=== PATIENT | female | born 1980 | race Caucasian/White ===

== ENCOUNTER 2018-05-08 10:02 | Emergency (ER) | payer BC ==
--- NOTE | 2018-05-08 10:15 | UC ---
Throat Pain/Nasal Guero HPI - HPI Summary HPI Summary: 37 yo female presents with sore throat for the last 4 days. Has been taking ibuprofen with good relief. She is eating and drinking well. Denies fever, chills, cough, rash, abdominal pain, n/v. - History of Current Complaint Stated Complaint: SORE THROAT Time Seen by Provider: 05/08/18 10:08 Hx Obtained From: Patient Severity: Mild Pain Intensity: 3 Pain Scale Used: 0-10 Numeric - Allergies/Home Medications Allergies/Adverse Reactions: Allergies Allergy/AdvReac Type Severity Reaction Status Date / Time No Known Allergies Allergy Verified 05/08/18 10:13 Home Medications: Home Medications NK [No Home Medications Reported] 05/08/18 [History Confirmed 05/08/18] PMH/Surg Hx/FS Hx/Imm Hx - Additional Past Medical History Additional PMH: None - Surgical History Surgical History: None - Family History Known Family History: Positive: None - Social History Occupation: Employed Full-time Lives: With Family Alcohol Use: None Substance Use Type: None Smoking Status (MU): Never Smoked Tobacco Review of Systems Constitutional: Negative Skin: Negative Eyes: Negative ENT: Sore Throat Respiratory: Negative Cardiovascular: Negative Gastrointestinal: Negative Neurovascular: Negative Neurological: Negative Psychological: Negative All Other Systems Reviewed And Are Negative: Yes Physical Exam - Summary Physical Exam Summary: GENERAL: NAD. WDWN. No pain distress. SKIN: No rashes, sores, lesions, or open wounds. HEENT: Head: AT/NC Eyes: Conjunctiva clear without inflammation or discharge. Ears: Hearing grossly normal. TMs intact, no bulging, erythema, or edema. Nose: Nasal mucosa pink and moist. NTTP maxillary and frontal sinus. Throat: Posterior oropharynx without erythema or tonsillar enlargement. No exudates. Uvula midline. No hoarse voice or muffled voice. NECK: Supple. Nontender. No lymphadenopathy. CHEST: CTAB. No r/r/w. No accessory muscle use. Breathing comfortably and in no distress. CV: RRR. Without m/r/g. Pulses intact. Cap refill <2seconds NEURO: Alert. PSYCH: Age appropriate behavior. Triage Information Reviewed: Yes Vital Signs: Vital Signs: Temp Pulse Resp BP Pulse Ox 98.5 F 106 18 177/91 100 05/08/18 10:14 05/08/18 10:14 05/08/18 10:14 05/08/18 10:14 05/08/18 10:14 Laboratory Tests 05/08/18 10:29 Group A Strep Rapid Negative Vital Signs Reviewed: Yes Throat Pain/Nasal Course/Dx - Course Course Of Treatment: POC strep negative. Suspect viral pharyngitis. - Differential Dx/Diagnosis Provider Diagnoses: Viral pharyngitis Discharge - Sign-Out/Discharge Documenting (check all that apply): Patient Departure All imaging exams completed and their final reports reviewed: No Studies - Discharge Plan Condition: Stable Disposition: HOME Patient Education Materials: Pharyngitis (ED) Referrals: Nelli Sanchez [Primary Care Provider] - Additional Instructions: If you develop a fever, shortness of breath, chest pain, new or worsening symptoms - please call your PCP or go to the ED. Your blood pressure was high at todays visit. Please see your primary provider within 4 weeks for recheck and re-evaluation. - Billing Disposition and Condition Condition: STABLE Disposition: Home
[2018-05-08 10:21] VITALS: BP 177/91
== END 2018-05-08 10:40 | disposition home or self-care (01) ==
LOC: UCEAST 10:02
DX: J02.9 Acute pharyngitis, unspecified (principal)
CPT/HCPCS: 87651; 99211; G0463

== ENCOUNTER 2018-05-09 09:36 | Emergency (ER) | payer BC ==
--- NOTE | 2018-05-09 10:38 | ED ---
Respiratory - HPI Summary HPI Summary: This patient is a 37 year old F presenting to [facility] accompanied by her Will with a chief complaint of continually worsening sore and swollen throat since 05/04/18, with pain starting the , and the swelling sensation on 05/06. PMHx tonsillitis frequently (mostly as a child), but no tonsillectomy. Pt was at 05/07/18 and her strep test was negative then. She denies fever, wheeze, and denies having received a flu vaccine this year; I never have and I never will. The patient endorses hoarse, scratchy voice, like Id been yelling , worsening swelling, ears draining, and sore throat. BP in room 135/99. Pt declines having her ears cleaned of cerumen. PMHx heart murmur (when ). Denies chance that she is because her has had a vasectomy, LMP 05/02/18. Pt noted she has a relative who sees Dr. Mcdowell for ENT. - History of Current Complaint Chief Complaint: EDThroatPain Stated Complaint: SOB Time Seen by Provider: 05/09/18 10:09 Hx Obtained From: Patient, Family/Environmental Coordinator - Will Onset/Duration: Gradual Onset, Lasting Days, Still Present, Worse Since - continually Timing: Constant Initial Severity: Mild Current Severity: Moderate Pain Intensity: 5 Sputum Amount: None Aggravating Factor(s): Nothing Alleviating Factor(s): Nothing Associated Signs and Symptoms: Edema - of throat/tonsils, Hoarseness - Allergy/Home Medications Allergies/Adverse Reactions: Allergies Allergy/AdvReac Type Severity Reaction Status Date / Time No Known Allergies Allergy Verified 05/09/18 09:41 PMH/Surg Hx/FS Hx/Imm Hx Previously Healthy: No Endocrine/Hematology History: Denies: Hx Sickle Cell Disease Cardiovascular History: Reports: Hx Hypertension - no meds, Other Cardiovascular Problems/Disorders - murmur when Respiratory History: Denies: Hx Asthma Sensory History: Reports: Hx Contacts or Glasses Denies: Hx Legally Blind, Hx Deafness Opthamlomology History: Reports: Hx Contacts or Glasses Denies: Hx Legally Blind EENT History: Denies: Hx Deafness Psychiatric History: Denies: Hx Schizophrenia - Cancer History Hx Chemotherapy: No Hx Radiation Therapy: No - Surgical History Surgery Procedure, Year, and Place: none Infectious Disease History: No Infectious Disease History: Denies: History Other Infectious Disease, Traveled Outside the [place] in Last 30 Days - Family History Known Family History: Positive: Respiratory Disease - asthma Negative: Other - tonsilitis, POSITIVE: [place] - Social History Lives: With Family Alcohol Use: None Substance Use Type: Reports: None Smoking Status (MU): Never Smoked Tobacco Review of Systems Negative: Fever Positive: Sore Throat, Other - tonsils swollen, hoarse voice Cardiovascular: Negative Respiratory: Negative Negative: Other - wheeze Gastrointestinal: Negative Positive: no symptoms reported Skin: Negative Neurological: Negative Psychological: Normal All Other Systems Reviewed And Are Negative: Yes Physical Exam - Summary Physical Exam Summary: Appearance: Well-appearing, minimal pain distress, well-nourished Skin: Warm, color reflects adequate perfusion, dry Head: Normal Head/Face inspection, atraumatic Eyes: Conjunctiva clear ENT: TMs cerumen bilaterally, L TM partially visible is clear, no nasal discharge, mucosal membranes moist, tonsils enlarged but not to midline, tonsils not red, no tonsillar exudate, pharynx not red Neck: Supple, submandibular nodes palpable, no anterior or posterior cervical nodes, no JVD Respiratory: Lungs clear, normal breath sounds, no respiratory distress Cardio: RRR, No murmur, pulses normal, brisk capillary refill Abdomen: Soft, non-tender Bowel sounds: Present Musculoskeletal: Strength Intact/ROM intact, no calf tenderness, no edema. Psychological: Normal Neuro: Alert, muscle tone normal, no focal deficit Triage Information Reviewed: Yes Vital Signs On Initial Exam: Initial Vitals Temp Pulse Resp BP Pulse Ox 97.6 F 102 18 143/92 100 05/09/18 09:39 05/09/18 09:39 05/09/18 09:39 05/09/18 09:39 05/09/18 09:39 Vital Signs Reviewed: Yes Diagnostics - Vital Signs Vital Signs Temp Pulse Resp BP Pulse Ox 05/09/18 09:39 97.6 F 102 18 143/92 100 - Laboratory Lab Statement: Any lab studies that have been ordered have been reviewed, and results considered in the medical decision making process. Disposition - Course Course Of Treatment: Patient declines, cerumen to be cleaned, flu and strep testing, and trial of steroids to decrease tonsillar swelling. She agrees ABx are not indicated, appreciates ENT referral. A 37-year-old F presents to the ED with a CC of sore and swollen throat for 5 days. (+) hoarse voice, swelling tonsils, ears draining. (-) Fever, wheeze, flu vaccine, chance of . PMHx frequent tonsilitis (more so as a child), but no SHx tonsilectomy. Pt was in [facility] yesterday 05/07/18, where a strep test was (-), but sx have only worsened since. No medications were given in the ED course. No imaging or EKG was taken. - Diagnoses Provider Diagnoses: Tonsillitis Discharge - Sign-Out/Discharge Documenting (check all that apply): Patient Departure - discharge - Discharge Plan Condition: Stable Disposition: HOME Patient Education Materials: Tonsillitis (ED) Referrals: Nelli Sanchez [Primary Care Provider] - 2 Days Marques Jessica MD [Medical Doctor] - As Soon As Possible (This is Dr. Mcdowell's partner, an teacher learning disabled. Please call here with this referral from Dr. Jean and asked to be seen as soon as possible for tonsillar hypertrophy. ) Additional Instructions: Your strep test was negative at urgent care on 05/07/18. Your tonsils are enlarged, but they do not look infected at this time. You have agreed that an antibiotic is not necessary. You have also declined a trial of steroids at this time to decrease swelling. Your clinical picture does not look like influenza. Dr. Jean has referred you to Dr. Jessica in the ENT office. Please ask for the soonest appointment available. You do not have indication of a peritonsillar abscess at this time. You should be seen urgently or return to the ER if you develop fever, shortness of breath, cough up any blood, or have any new or worsening symptoms. - Attestation Statements Document Initiated by Scribe: Yes Documenting Scribe: Vick Vergara Provider For Whom Scribe is Documenting (Include Credential): Dr. Chelsea Jean MD Scribe Attestation: Vick Cerda, scribed for Dr. Chelsea Jean MD on 05/09/18 at 1348.
[2018-05-09 10:58] VITALS: BP 127/80
== END 2018-05-09 10:58 | disposition home or self-care (01) ==
LOC: ED 09:36
DX: J03.90 Acute tonsillitis, unspecified (principal); J02.9 Acute pharyngitis, unspecified
CPT/HCPCS: 99281

== ENCOUNTER 2022-03-25 07:49 | Inpatient (IN) ==
[2022-03-25] MEDS ORDERED: Labetalol 300 mg TAB PO ONE (11:23)
[2022-03-25] MEDS ORDERED: Ondansetron 4 mg VIAL 2 MG/ML 2 ml VIAL IV PRN (11:30)
[2022-03-25] MEDS: NS 0.9% 1000 ml BAG 1,000 ML IV SCH ×2 (12:00→20:02)
[2022-03-25] MEDS ORDERED: cefTRIAXone 1 gm/50 mL D5W 1 GM/50 ML BAG IV ONE (17:02)
[2022-03-25] MEDS ORDERED: Labetalol 300 mg TAB PO SCH (21:00)
[2022-03-26] MEDS ORDERED: NS 0.45% KCl 20 Meq 1000 ml 1,000 ML IV SCH (05:00)
[2022-03-26 05:17] LABS: ABS Lymphocytes 0.5 10^3/ul (1.0-4.8); ABS Monocytes 0.1 10^3/ul (0-0.8); ABS Neutrophils 4.7 10^3/ul (1.5-7.7); Hematocrit 25 % (35-47); Hemoglobin 8.3 g/dL (12.0-16.0); Lymphocyte % 8.6 %; Mean Corpuscular HGB Conc 33 g/dL (31-36); Mean Corpuscular Hemoglobin 28 pg (27-31); Mean Corpuscular Volume 84 fL (80-97); Mean Platelet Volume 6.9 fL (7.4-10.4); Platelet Count 218 10^3/uL (150-450); Red Blood Count 2.97 10^6 /uL (3.70-4.87); Red Cell Distribution Width 19 % (10-15); White Blood Count 5.2 10^3/uL (3.5-10.8)
[2022-03-26 05:43] LABS: Albumin 3.8 g/dL (3.2-5.2); Albumin/Globulin Ratio 1.2 (1-3); Calcium 9.6 mg/dL (8.6-10.3); Globulin 3.1 g/dL (2-4); Magnesium 1.8 mg/dL (1.9-2.7); Potassium 4.9 mmol/L (3.5-5.0); Total Bilirubin 0.6 mg/dL (0.2-1.0); Total Protein 6.9 g/dL (6.4-8.9); eGFR CKD-EPI 11.3 (>60)
[2022-03-26] MEDS: NS 0.45% KCl 20 Meq 1000 ml 1,000 ML IV SCH ×2 (07:06→14:38)
[2022-03-26] MEDS ORDERED: Magnesium Sulfate IV 1GM/100ML 1 GM/100 ML BAG IV ONE (08:56)
[2022-03-26] MEDS: Labetalol 300 mg TAB PO SCH ×2 (11:46→21:09)
[2022-03-26 17:22] LABS: Potassium 4.7 mmol/L (3.5-5.0)
[2022-03-26 17:23] LABS: eGFR CKD-EPI 13.8 (>60)
[2022-03-27] MEDS: NS 0.45% KCl 20 Meq 1000 ml 1,000 ML IV SCH (03:27)
[2022-03-27 05:43] LABS: ABS Eosinophils 0.1 10^3/ul (0-0.6); ABS Lymphocytes 0.8 10^3/ul (1.0-4.8); ABS Monocytes 0.4 10^3/ul (0-0.8); ABS Neutrophils 3.8 10^3/ul (1.5-7.7); Eosinophil % 2.1 %; Hematocrit 23 % (35-47); Hemoglobin 7.6 g/dL (12.0-16.0); Lymphocyte % 15.4 %; Mean Corpuscular HGB Conc 34 g/dL (31-36); Mean Corpuscular Hemoglobin 28 pg (27-31); Mean Corpuscular Volume 85 fL (80-97); Mean Platelet Volume 6.8 fL (7.4-10.4); Platelet Count 185 10^3/uL (150-450); Red Blood Count 2.69 10^6 /uL (3.70-4.87); Red Cell Distribution Width 19 % (10-15); White Blood Count 5.2 10^3/uL (3.5-10.8)
[2022-03-27 06:05] LABS: Calcium 9.1 mg/dL (8.6-10.3); Potassium 4.7 mmol/L (3.5-5.0); eGFR CKD-EPI 16.8 (>60)
[2022-03-27] MEDS: Labetalol 300 mg TAB PO SCH (08:59)
[2022-03-27 17:37] VITALS: BP 155/86
== END 2022-03-27 17:19 | disposition home or self-care (01) | DRG 469 ==
LOC: CHOA 07:49 → MEDTELE 10:22 → SUATTDRO 10:22
PROVIDERS: ADMIT Internal Medicine Hematology & Oncology; ATTEND Hospitalist

== ENCOUNTER 2022-05-10 16:19 | Observation (INO) ==
[~2022-05-10 16:19] MED LIST: APREPITANT 130 MG/18 ML VIAL IV ONE; D5W IVPB ONE; Dexamethasone IV 20 MG in NS 0.9% 50 ML 50 ML IVPB ONE; EPINEPHrine Anaphylaxis SYR CERTADOSE SYR KIT IM PRN; FLUOROURACIL IVPB SCH; Famotidine IV 10 MG/ML 2 ml VIAL (20 mg) IV ONE; Famotidine IV 10 MG/ML 2 ml VIAL (20 mg) IV PRN; LEUCOVORIN CALCIUM IVPB ONE; LORazepam 2 mg VIAL 1 ml IV PUSH PRN; Lorazepam PYXIS KEY PRN; NS 0.9% IVPB ONE; NS 0.9% IVPB SCH; OXALIPLATIN FOR DESENSIT A IVPB ONE; OXALIPLATIN FOR DESENSIT B IVPB ONE; OXALIPLATIN FOR DESENSIT C IVPB ONE; OXALIPLATIN IVPB ONE; PALONOSETRON IVPB ONE; methylPREDNISolone SOD SUCC 125 mg 2 ML VIAL IV PRN
[2022-05-10] MEDS ORDERED: NS 0.9% IVPB ONE ×2 (17:00→18:00)
[2022-05-10] MEDS ORDERED: FLUOROURACIL IVPB ONE ×2 (17:00→18:00)
[2022-05-10 21:02] VITALS: BP 112/66
== END 2022-05-10 20:50 | disposition home or self-care (01) ==
LOC: ICU
PROVIDERS: ADMIT Internal Medicine Hematology & Oncology; ATTEND Internal Medicine Hematology & Oncology

== ENCOUNTER 2022-09-11 18:15 | Inpatient (IN) ==
[~2022-09-11 18:15] MED LIST changes: -APREPITANT 130 MG/18 ML VIAL IV ONE; -D5W IVPB ONE; -Dexamethasone IV 20 MG in NS 0.9% 50 ML 50 ML IVPB ONE; -EPINEPHrine Anaphylaxis SYR CERTADOSE SYR KIT IM PRN; -FLUOROURACIL IVPB SCH; -Famotidine IV 10 MG/ML 2 ml VIAL (20 mg) IV ONE; -Famotidine IV 10 MG/ML 2 ml VIAL (20 mg) IV PRN; -LEUCOVORIN CALCIUM IVPB ONE; -LORazepam 2 mg VIAL 1 ml IV PUSH PRN; -Lorazepam PYXIS KEY PRN; -NS 0.9% IVPB ONE; -NS 0.9% IVPB SCH; -OXALIPLATIN FOR DESENSIT A IVPB ONE; -OXALIPLATIN FOR DESENSIT B IVPB ONE; -OXALIPLATIN FOR DESENSIT C IVPB ONE; -OXALIPLATIN IVPB ONE; -PALONOSETRON IVPB ONE; +fentaNYL PATCH 25 MCG/HR 1 PATCH TRANSDERM SCH; -methylPREDNISolone SOD SUCC 125 mg 2 ML VIAL IV PRN
[2022-09-11] MEDS ORDERED: Droperidol 5 MG/2 ML 2 ML VIAL IV ONE (19:25)
[2022-09-11] MEDS ORDERED: NS 0.9% 1000 ml BAG 1,000 ML IV ONE (20:04)
[2022-09-11 20:08] LABS: Hematocrit 36 % (35-47); Hemoglobin 12.9 g/dL (12.0-16.0); Mean Corpuscular HGB Conc 36 g/dL (31-36); Mean Corpuscular Hemoglobin 33 pg (27-31); Mean Corpuscular Volume 91 fL (80-97); Mean Platelet Volume 7.1 fL (7.4-10.4); Platelet Count 268 10^3/uL (150-450); Red Blood Count 3.97 10^6 /uL (3.70-4.87); Red Cell Distribution Width 16 % (10-15); White Blood Count 9.5 10^3/uL (3.5-10.8)
[2022-09-11 20:36] LABS: ABS Lymphocytes 0.6 10^3/ul (1.0-4.8); ABS Monocytes 0.1 10^3/ul (0-0.8); ABS Neutrophils 8.7 10^3/ul (1.5-7.7); Lymphocyte % 6.2 %; Nucleated Red Blood Cells % 0.1
[2022-09-11 20:49] LABS: ALT 11 U/L (7-52); Albumin 4.8 g/dL (3.2-5.2); Albumin/Globulin Ratio 1.6 (1-3); Alkaline Phosphatase 68 U/L (35-149); Blood Urea Nitrogen 28 mg/dL (6-24); C Reactive Protein 3.05 mg/L (<8.01); CO2 Carbon Dioxide 29 mmol/L (22-32); Calcium 10.8 mg/dL (8.6-10.3); Chloride 101 mmol/L (101-111); Creatinine, Serum 0.73 mg/dL (0.51-0.95); Glucose 125 mg/dL (70-100); Sodium 138 mmol/L (135-145); Total Protein 7.8 g/dL (6.4-8.9); eGFR CKD-EPI 105.9 (>60)
[2022-09-11 20:52] LABS: Anion Gap 8 mmol/L (2-11)
[2022-09-12] MEDS ORDERED: Ondansetron ODT 4 mg TAB 4 MG TAB PO PRN (00:04)
[2022-09-12] MEDS ORDERED: Scopolamine 1 mg/72hr PATCH TRANSDERM PRN (00:17)
[2022-09-12 00:57] LABS: Potassium Redraw 3.5 mmol/L (3.5-5.0)
[2022-09-12] MEDS: Enoxaparin 40 MG/0.4 ML SYR SUBCUT SCH ×2 (00:59→21:13)
[2022-09-12] MEDS ORDERED: Lorazepam PYXIS KEY PRN (03:44)
[2022-09-12] MEDS ORDERED: LORazepam 2 mg VIAL 1 ml IV PUSH ONE (03:44)
[2022-09-12] MEDS ORDERED: Naloxone 0.4 mg VIAL 0.4 mg/ml 1 ml VIAL IV PUSH PRN ×3 (03:57→20:29)
[2022-09-12] MEDS: fentaNYL Patch Check Q Shift NOTE FOLLOW UP SCH ×2 (07:57→19:34)
[2022-09-12] MEDS ORDERED: NS 0.9% 1000 ml BAG 1,000 ML IV SCH (10:15)
[2022-09-12] MEDS ORDERED: HYDROmorphone 1 MG/1 ML SYRINGE IV PRN (12:06)
[2022-09-12] MEDS ORDERED: Dexamethasone IV 4 MG/ML VIAL 1 ml VIAL IV SLOW PU ONE (12:22)
[2022-09-12] MEDS ORDERED: hydrALAZINE 20 mg/ml 1 ML Vial IV IV SLOW PU PRN (14:44)
[2022-09-12] MEDS ORDERED: hydrALAZINE 20 mg/ml 1 ML Vial IV IV SLOW PU ONE (14:50)
[2022-09-12] MEDS ORDERED: acetaZOLAMIDE IV 500 MG in NS 0.9% 50 ML 50 ML IVPB ONE (22:00)
[2022-09-12] MEDS: Ondansetron 4 mg VIAL 2 MG/ML 2 ml VIAL IV PRN (23:11)
[2022-09-13 06:18] LABS: ABS Lymphocytes 0.8 10^3/ul (1.0-4.8); ABS Monocytes 0.5 10^3/ul (0-0.8); ABS Neutrophils 8.1 10^3/ul (1.5-7.7); Hematocrit 31 % (35-47); Hemoglobin 11.6 g/dL (12.0-16.0); Lymphocyte % 8.2 %; Mean Corpuscular HGB Conc 37 g/dL (31-36); Mean Corpuscular Hemoglobin 34 pg (27-31); Mean Corpuscular Volume 92 fL (80-97); Mean Platelet Volume 7.3 fL (7.4-10.4); Nucleated Red Blood Cells % 0.1; Platelet Count 214 10^3/uL (150-450); Red Blood Count 3.38 10^6 /uL (3.70-4.87); Red Cell Distribution Width 17 % (10-15); White Blood Count 9.4 10^3/uL (3.5-10.8)
[2022-09-13] MEDS: Ondansetron 4 mg VIAL 2 MG/ML 2 ml VIAL IV PRN ×2 (06:33→21:38)
[2022-09-13] MEDS: fentaNYL Patch Check Q Shift NOTE FOLLOW UP SCH ×2 (06:58→19:14)
[2022-09-13 07:02] LABS: Albumin/Globulin Ratio 1.5 (1-3); Creatinine, Serum 0.89 mg/dL (0.51-0.95); Globulin 2.6 g/dL (2-4); Potassium 3.2 mmol/L (3.5-5.0); Total Bilirubin 1.2 mg/dL (0.2-1.0); Total Protein 6.6 g/dL (6.4-8.9); eGFR CKD-EPI 83.5 (>60)
[2022-09-13 08:19] LABS: Magnesium 1.7 mg/dL (1.9-2.7)
[2022-09-13] MEDS: KCL 20 MEQ/100 ML IVPREMIX 20 MEQ/100 ML BAG IV SCH ×3 (08:54→15:38)
[2022-09-13] MEDS ORDERED: Magnesium Sulfate 2 gm BAG 2 GM/50 ML BAG IVPB ONE (09:23)
[2022-09-13] MEDS ORDERED: fentaNYL PATCH 12 MCG/HR 1 PATCH TRANSDERM SCH (12:00)
[2022-09-13] MEDS: HYDROmorphone 0.5 MG/0.5 ML SYRINGE IV SLOW PU PRN ×2 (16:43→21:37)
[2022-09-13] MEDS: Acetaminophen IV 1 GM/100ML 1,000 MG/100 ML BAG IV SCH (18:29)
[2022-09-13] MEDS ORDERED: fentaNYL Patch Check Q Shift NOTE SCH (19:00)
[2022-09-13] MEDS ORDERED: hydrALAZINE 20 mg/ml 1 ML Vial IV IV SLOW PU ONE ×2 (19:56→21:10)
[2022-09-13] MEDS ORDERED: hydrALAZINE 20 mg/ml 1 ML Vial IV IV SLOW PU SCH (20:00)
[2022-09-13] MEDS ORDERED: Dexamethasone IV 4 MG/ML VIAL 1 ml VIAL IV SLOW PU ONE (21:29)
[2022-09-13] MEDS ORDERED: acetaZOLAMIDE IV 500 MG in NS 0.9% 50 ML 50 ML IVPB ONE (22:00)
[2022-09-13] MEDS: Enoxaparin 40 MG/0.4 ML SYR SUBCUT SCH (22:48)
[2022-09-14] MEDS: Acetaminophen IV 1 GM/100ML 1,000 MG/100 ML BAG IV SCH ×3 (01:30→19:48)
[2022-09-14] MEDS: HYDROmorphone 0.5 MG/0.5 ML SYRINGE IV SLOW PU PRN ×2 (04:27→09:01)
[2022-09-14] MEDS: Ondansetron 4 mg VIAL 2 MG/ML 2 ml VIAL IV PRN (04:47)
[2022-09-14 06:50] LABS: Hematocrit 35 % (35-47); Hemoglobin 12.9 g/dL (12.0-16.0); Mean Corpuscular HGB Conc 37 g/dL (31-36); Mean Corpuscular Hemoglobin 34 pg (27-31); Mean Corpuscular Volume 93 fL (80-97); Mean Platelet Volume 7.3 fL (7.4-10.4); Platelet Count 272 10^3/uL (150-450); Red Blood Count 3.79 10^6 /uL (3.70-4.87); Red Cell Distribution Width 17 % (10-15); White Blood Count 10.5 10^3/uL (3.5-10.8)
[2022-09-14] MEDS: fentaNYL Patch Check Q Shift NOTE FOLLOW UP SCH ×2 (07:01→15:00)
[2022-09-14 07:33] LABS: Albumin 4.1 g/dL (3.2-5.2); Albumin/Globulin Ratio 1.5 (1-3); Calcium 10.2 mg/dL (8.6-10.3); Creatinine, Serum 0.94 mg/dL (0.51-0.95); Globulin 2.7 g/dL (2-4); Magnesium 2.1 mg/dL (1.9-2.7); Potassium 3.6 mmol/L (3.5-5.0); Total Bilirubin 1.2 mg/dL (0.2-1.0); Total Protein 6.8 g/dL (6.4-8.9); eGFR CKD-EPI 78.2 (>60)
[2022-09-14] MEDS ORDERED: HYDROmorphone 0.5 MG/0.5 ML SYRINGE IV SLOW PU PRN (11:15)
[2022-09-14] MEDS ORDERED: Naloxone 0.4 mg VIAL 0.4 mg/ml 1 ml VIAL IV PUSH PRN (13:26)
[2022-09-14] MEDS ORDERED: HYDROmorphone PCA 20 MG/20 ML PCA.SYRING PCA SCH ×2 (14:00→17:19)
[2022-09-14] MEDS ORDERED: HYDROmorphone 0.5 MG/0.5 ML SYRINGE IV SLOW PU ONE (14:05)
[2022-09-14 14:49] LABS: Activated Partial Thrombo Time 28.3 seconds (26.0-38.0); INR 1.21 (0.88-1.18)
[2022-09-14] MEDS ORDERED: hydrALAZINE 20 mg/ml 1 ML Vial IV IV SLOW PU ONE (15:52)
[2022-09-14 17:29] LABS: Body Fluid Source Cerebral Spinal
[2022-09-14 17:46] LABS: Body Fluid Appearance Clear; Body Fluid Color Colorless; CSF Glucose 56 mg/dL (40-70); CSF Tube # 4
[2022-09-14 18:23] LABS: Body Fluid WBC 8 /mcL
[2022-09-14 18:26] LABS: Body Fluid Band 1 %; Body Fluid Mono 58 %; Body Fluid Total Cells Counted 200
[2022-09-14] MEDS: Enoxaparin 40 MG/0.4 ML SYR SUBCUT SCH (21:50)
[2022-09-15] MEDS: Acetaminophen IV 1 GM/100ML 1,000 MG/100 ML BAG IV SCH ×3 (02:38→16:56)
[2022-09-15 05:48] LABS: Hematocrit 34 % (35-47); Hemoglobin 12.2 g/dL (12.0-16.0); Mean Corpuscular HGB Conc 36 g/dL (31-36); Mean Corpuscular Hemoglobin 33 pg (27-31); Mean Corpuscular Volume 93 fL (80-97); Mean Platelet Volume 7.3 fL (7.4-10.4); Platelet Count 212 10^3/uL (150-450); Red Blood Count 3.65 10^6 /uL (3.70-4.87); Red Cell Distribution Width 16 % (10-15)
[2022-09-15 06:32] LABS: ALT 24 U/L (7-52); AST 16 U/L (13-39); Albumin 3.9 g/dL (3.2-5.2); Albumin/Globulin Ratio 1.6 (1-3); Alkaline Phosphatase 65 U/L (35-149); Anion Gap 7 mmol/L (2-11); Blood Urea Nitrogen 27 mg/dL (6-24); C Reactive Protein < 1.00 mg/L (<8.01); CO2 Carbon Dioxide 26 mmol/L (22-32); Calcium 9.7 mg/dL (8.6-10.3); Chloride 101 mmol/L (101-111); Creatinine, Serum 0.85 mg/dL (0.51-0.95); Globulin 2.5 g/dL (2-4); Glucose 121 mg/dL (70-100); Potassium 3.4 mmol/L (3.5-5.0); Sodium 134 mmol/L (135-145); Total Protein 6.4 g/dL (6.4-8.9); eGFR CKD-EPI 88.2 (>60)
[2022-09-15] MEDS ORDERED: Etomidate 40 mg/20 ml (2 MG/ML) 20 ml VIAL (40 mg) ONE (10:00)
[2022-09-15] MEDS: Ondansetron 4 mg VIAL 2 MG/ML 2 ml VIAL IV PRN (12:33)
[2022-09-15] MEDS ORDERED: HYDROmorphone PCA 20 MG/20 ML PCA.SYRING PCA SCH (13:48)
[2022-09-15] MEDS ORDERED: hydrALAZINE 20 mg/ml 1 ML Vial IV ONE (20:10)
[2022-09-15] MEDS ORDERED: hydrALAZINE 20 mg/ml 1 ML Vial IV IV SLOW PU ONE (20:11)
[2022-09-15] MEDS ORDERED: Succinylcholine 200 mg VIAL 20 mg/ml 10 ml VIAL (200 mg) ONE (20:39)
[2022-09-15] MEDS ORDERED: Rocuronium 50 mg VIAL 10 mg/ml 5 ml VIAL (50 mg) ONE (20:39)
[2022-09-15] MEDS ORDERED: Labetalol IV 5 MG/ML 20 ml VIAL ONE (20:45)
[2022-09-15] MEDS ORDERED: Norepinephrine 16MCG/ML BAGD5W 4,000 MCG/250 ML BAG IV ONE (21:00)
[2022-09-15 21:31] LABS: ABS Lymphocytes 0.5 10^3/ul (1.0-4.8); ABS Monocytes 0.3 10^3/ul (0-0.8); ABS Neutrophils 10.5 10^3/ul (1.5-7.7); Hematocrit 37 % (35-47); Hemoglobin 13.6 g/dL (12.0-16.0); Lymphocyte % 4.6 %; Mean Corpuscular HGB Conc 37 g/dL (31-36); Mean Corpuscular Hemoglobin 34 pg (27-31); Mean Corpuscular Volume 92 fL (80-97); Mean Platelet Volume 7.3 fL (7.4-10.4); Platelet Count 398 10^3/uL (150-450); Red Blood Count 4.03 10^6 /uL (3.70-4.87); Red Cell Distribution Width 17 % (10-15); White Blood Count 11.4 10^3/uL (3.5-10.8)
[2022-09-15 21:37] LABS: INR 1.23 (0.88-1.18)
[2022-09-15 21:45] LABS: Urine Appearance Cloudy; Urine Bilirubin Negative (Negative); Urine Blood 1+ (Negative); Urine Color Yellow; Urine Glucose Negative (Negative); Urine Ketones Negative (Negative); Urine Nitrite Negative (Negative); Urine Protein 1+(30 mg/dL) (Negative); Urine Specific Gravity 1.013 (1.002-1.030); Urine Urobilinogen Negative (Negative)
[2022-09-15 21:48] LABS: Urine Bacteria Absent (Absent); Urine Red Blood Cell 2+(6-10/hpf) (Absent); Urine Squamous Epithelial Cell Present (Absent); Urine White Blood Cell Trace(0-5/hpf) (Absent)
[2022-09-15 21:59] LABS: Albumin 4.1 g/dL (3.2-5.2); Albumin/Globulin Ratio 1.6 (1-3); Creatinine, Serum 0.82 mg/dL (0.51-0.95); Globulin 2.6 g/dL (2-4); Total Bilirubin 1.7 mg/dL (0.2-1.0); Total Protein 6.7 g/dL (6.4-8.9); eGFR CKD-EPI 92.1 (>60)
[2022-09-15] MEDS ORDERED: Norepinephrine 16MCG/ML BAGD5W 4,000 MCG/250 ML BAG IV SCH ×2 (22:00→22:22)
[2022-09-15] MEDS ORDERED: Pantoprazole VIAL 40 MG VIAL IV SCH (22:00)
[2022-09-15 22:01] LABS: Potassium 2.7 mmol/L (3.5-5.0)
[2022-09-15] MEDS ORDERED: Mannitol 25% (12.5 GM) 50 ML 12.5 GM/50 ML VIAL IV ONE ×2 (22:12→23:51)
[2022-09-15] MEDS ORDERED: Dexamethasone IV 4 MG/ML VIAL 1 ml VIAL IV SLOW PU ONE (22:20)
[2022-09-15] MEDS: Chlorhexidine MOUTHWASH 0.12% 15 ML UDC SWISH SPIT SCH (22:27)
[2022-09-15] MEDS: Enoxaparin 40 MG/0.4 ML SYR SUBCUT SCH (22:27)
[2022-09-15] MEDS ORDERED: Mannitol 25% (12.5 GM) 50 ML 12.5 GM/50 ML VIAL ONE (22:52)
[2022-09-15] MEDS ORDERED: Naloxone 0.4 mg VIAL 0.4 mg/ml 1 ml VIAL IV PUSH SCH (23:00)
[2022-09-15 23:27] LABS: Magnesium 1.5 mg/dL (1.9-2.7)
[2022-09-16] MEDS ORDERED: Magnesium Sulfate IV 3 GM in NS 0.9% 100 ml BAG 100 ML IVPB ONE (00:03)
[2022-09-16 00:07] LABS: Creatinine, Serum 0.72 mg/dL (0.51-0.95); Magnesium 1.5 mg/dL (1.9-2.7); eGFR CKD-EPI 107.7 (>60)
[2022-09-16 00:08] LABS: Potassium 2.4 mmol/L (3.5-5.0)
[2022-09-16] MEDS: KCL 20 MEQ/100 ML IVPREMIX 20 MEQ/100 ML BAG IV SCH ×3 (01:35→05:10)
[2022-09-16 03:34] LABS: Calcium 9.2 mg/dL (8.6-10.3); Creatinine, Serum 0.76 mg/dL (0.51-0.95); Potassium 3.3 mmol/L (3.5-5.0); eGFR CKD-EPI 100.9 (>60)
[2022-09-16] MEDS: Acetaminophen IV 1 GM/100ML 1,000 MG/100 ML BAG IV SCH (03:56)
[2022-09-16 03:58] LABS: Hematocrit 35 % (35-47); Hemoglobin 12.6 g/dL (12.0-16.0); Mean Corpuscular HGB Conc 36 g/dL (31-36); Mean Corpuscular Hemoglobin 32 pg (27-31); Mean Corpuscular Volume 91 fL (80-97); Mean Platelet Volume 7.3 fL (7.4-10.4); Platelet Count 294 10^3/uL (150-450); Red Cell Distribution Width 16 % (10-15); White Blood Count 10.8 10^3/uL (3.5-10.8)
[2022-09-16] MEDS: Chlorhexidine MOUTHWASH 0.12% 15 ML UDC SWISH SPIT SCH ×2 (03:58→05:10)
[2022-09-16 04:31] LABS: Albumin 3.8 g/dL (3.2-5.2); Albumin/Globulin Ratio 1.8 (1-3); Calcium 9.6 mg/dL (8.6-10.3); Creatinine, Serum 0.84 mg/dL (0.51-0.95); Globulin 2.1 g/dL (2-4); Magnesium 3.3 mg/dL (1.9-2.7); Potassium 3.2 mmol/L (3.5-5.0); Total Bilirubin 1.5 mg/dL (0.2-1.0); Total Protein 5.9 g/dL (6.4-8.9); eGFR CKD-EPI 89.5 (>60)
[2022-09-16 05:52] VITALS: BP 90/58
== END 2022-09-16 05:48 | disposition expired | DRG 23 ==
LOC: ED 18:15 → EDHOLD 18:15 → OBSVTOIN 23:39 → SUATTDRO 23:39 → MEDTELE 09-12 17:55 → ICU 09-15 20:25
PROVIDERS: ADMIT Internal Medicine; ATTEND Internal Medicine